=== PATIENT | female | born 1960 | race Caucasian/White ===

== ENCOUNTER 2022-02-02 21:09 | Emergency (ER) | payer OTHER ==
[2022-02-02 22:21] LABS: BASOPHIL 0.9 % (0-2); HCT 32.7 % (37.0-47.0); HGB 10.4 g/dl (12.5-16.0); LYMPHOCYTE 22.7 % (15-48); MCH 27.7 pg (25.0-31.0); MCHC 31.8 g/dL (32.0-36.0); MONOCYTE 6.4 % (0-12); NEUTROPHIL 67.8 % (41-80); NRBC 0; PLT 255 K/uL (150-400); RBC 3.76 M/uL (4.20-5.40); RDW 14.7 % (11.5-14.0); WBC 5.6 K/uL (4.0-10.5)
[2022-02-02 22:22] LABS: BILIRUBIN NEGATIVE (NEGATIVE); BLOOD NEGATIVE Ery/uL (NEGATIVE); CLARITY CLEAR (CLEAR); COLOR YELLOW (YELLOW); GLUCOSE (U) NORMAL (NORMAL); LEUKOCYTES NEGATIVE Leu/uL (NEGATIVE); NITRITE NEGATIVE (NEGATIVE); PROTEIN NEGATIVE (NEGATIVE); UROBILINOGEN 0.2 mg/dL (0.2-1.0); pH 6.5 (5.0-9.0)
[2022-02-02 22:28] LABS: ECSTASY (MDMA) NEGATIVE (NEGATIVE); MARIJUANA (THC) POSITIVE (NEGATIVE); METHADONE NEGATIVE (NEGATIVE); OPIATES NEGATIVE (NEGATIVE)
[2022-02-02 22:29] LABS: AMPHETAMINES NEGATIVE (NEGATIVE); BARBITURATES NEGATIVE (NEGATIVE); OXYCODONE NEGATIVE (NEGATIVE)
[2022-02-02 22:35] LABS: ALBUMIN 3.3 g/dL (3.4-5.0); ALKALINE PHOSHATASE 54 U/L (46-116); ALT 27 U/L (14-59); AST 17 U/L (15-37); BILIRUBIN - TOTAL 0.2 mg/dL (0.2-1.0); BUN 18 mg/dL (7-18); CHLORIDE 105 mmol/L (98-107); CO2 (BICARBONATE) 26 mmol/L (21-32); CREATININE 0.62 mg/dL (0.51-0.95); GLOBULIN (CALCULATION) 3.1 g/dL; GLUCOSE 156 mg/dL (74-106); POTASSIUM 3.1 mmol/L (3.5-5.1); TOTAL PROTEIN 6.4 g/dL (6.4-8.2)
== END 2022-02-03 00:50 | disposition home or self-care (01) ==
LOC: FER 21:09
PROVIDERS: Emergency Medicine
DX: R55 Syncope and collapse (principal); E87.6 Hypokalemia; I10 Essential (primary) hypertension; Z79.899 Other long term (current) drug therapy
CPT/HCPCS: 36415; 80053; 80305; 81003; 85025; 99284; G0480